=== PATIENT | female | born 1970 | race Caucasian/White ===

== ENCOUNTER 2019-09-15 13:27 | Observation (INO) ==
[2019-09-15] MEDS ORDERED: ZOSYN 3.375 GM in NS 50 ML IV ONE (14:52)
[2019-09-15 14:56] LABS: BASO# 0.04 X1000 (0.0-0.2); BASO% 0.4 % (0.0-0.8); HEMATOCRIT 38.3 % (37.0-47.0); HEMOGLOBIN 12.4 g/dL (12.0-16.0); IMM GRAN# 0.02 X1000 (0.0-0.04); IMM GRAN% 0.2 % (0.0-0.5); LYMPH% 27.9 % (20.5-51.1); MCH 30.4 PG (27-31); MCHC 32.4 g/dL (33-37); MCV 93.9 FL (81-99); MONO# 0.95 X1000 (0.11-0.59); MONO% 9.5 % (1.7-9.3); MPV 12.1 FL (7.4-10.4); NEUT# 6.02 X1000 (1.4-6.5); PLT 279 X1000 (130-400); RBC 4.08 XMIL (4.2-5.4); RDW 11.9 % (11.5-14.5); WBC 10.03 X1000 (4.8-10.8)
--- NOTE | 2019-09-15 15:13 | PROVIDER DOCUMENTATION ---
HPI-Animal/Snake Bite Injury - General Chief Complaint: Animal Bite Stated Complaint: ANIMAL BITE Time Seen by Provider: 09/15/19 14:18 Patient arrived via EMS?: No Source: patient Allergies/Adverse Reactions: Patient Allergies Allergy/AdvReac Type Severity Reaction Status Date / Time No Known Allergies Allergy Verified 09/15/19 13:34 - History of Present Illness-Bite Injuries Nature of Presenting Problem: [id number] presents to the ER with c/o a cat bite to the web of the right hand and thumb that happened 2 nights ago. She reports she started Augmentin the next morning. She reports that yesterday evening she began noticing redness spreading up her arm. When she woke this morning, the redness had streaked up her arm and she had a swollen lymph node in her right armpit. She went to her PCP who immediately sent her here. She denies any fever at the present time. Onset/Duration: 2 days ago Locality of Occurance: Home Quality: painful - Animal Bite Animal:: reports: cat, family pet Context of Attack: reports: "unprovoked" attack Severity of Bite Injury: bitten Review of Systems - Adult - REVIEW OF SYSTEMS - ADULT Constitutional: reports: see HPI. denies: chills, fever Eyes: reports: no symptoms reported Ears, Nose, Mouth & Throat: reports: no symptoms reported Cardiovascular: reports: no symptoms reported Respiratory: reports: no symptoms reported Gastrointestinal: reports: no symptoms reported Genitourinary: reports: no symptoms reported Musculoskeletal: reports: no symptoms reported Integumentary: reports: see HPI, other (punture wounds to webbing of right hand and thumb) Neurological: reports: no symptoms reported Psychiatric: reports: no symptoms reported Endocrine: reports: no symptoms reported Hematologic/Lymphatic: reports: no symptoms reported Allergic/Immunologic: reports: no symptoms reported All Other Systems: Reviewed and Negative Past History - Adult - PAST MEDICAL HISTORY-ADULT Review of Records: reports: Old Records Reviewed, Nursing Assessment Review, Medications Reviewed, Social history reviewed & non-contributory. Major Childhood Illnesses: reports: denies history Cardiovascular: reports: denies history Respiratory: reports: denies history Gastrointestinal: reports: denies history Obstetrical/Gynecological: reports: denies history Genitourinary: reports: denies history Musculoskeletal: reports: denies history Neurological: reports: denies history Endocrine/Immune: reports: denies history Other Conditions: reports: denies history - IMMUNIZATION STATUS Childhood Immunizations: See Nurse Assessment Flu Vaccine: See Nurse Assessment - FAMILY HISTORY Family History: reviewed, not pertinent - SOCIAL HISTORY Smoking: denies Substance Use: denies Living Situation: family Physical Exam-General - PHYSICAL EXAM-ADULT Initial Vital Signs Reviewed: Yes - CONSTITUTIONAL General Appearance: alert, no apparent distress - EYES Eyes: PERRL/EOMI, pink conjunctivae - HEAD, EARS, NOSE, MOUTH & THROAT HENMT: normocephalic/atraumatic, moist mucous membranes, TMs normal - NECK Neck: non-tender, full range of motion, supple - RESPIRATORY Respiratory: lungs clear, normal breath sounds - CARDIOVASCULAR Cardiovascular: regular rate, rhythm - GASTROINTESTINAL (ABDOMEN) Abdominal Exam: non tender, soft - LYMPHATIC Lymphatic: axilla node tender (right) - MUSCULOSKELETAL Back Exam: normal inspection Extremity: non-tender, normal gait Peripheral Pulses: radial (R): 2+, radial (L): 2+ - SKIN Integumentary: erythema (right arm and hand with streaking noted), tenderness (right hand), warm (right hand) - NEUROLOGIC Neurologic: grossly normal Progress - PLAN OF CARE/RESULTS Progress/Plan/Lab Results: Vital Signs - 8 hr 09/15/19 13:30 Temperature 97.8 F Pulse Rate 76 Respiratory Rate 15 Blood Pressure 131/88 O2 Sat by Pulse Oximetry 100 Laboratory Results - last 24 hr 09/15/19 09/15/19 14:42 14:42 WBC 10.03 RBC 4.08 L Hgb 12.4 Hct 38.3 MCV 93.9 MCH 30.4 MCHC 32.4 L RDW Std Deviation 11.9 Plt Count 279 MPV 12.1 H Immature Gran % (Auto) 0.2 Neut % (Auto) 60.0 Lymph % (Auto) 27.9 [place] % (Auto) 9.5 H Eos % (Auto) 2.0 Baso % (Auto) 0.4 Immature Gran # (Auto) 0.02 Neut # (Auto) 6.02 Lymph # (Auto) 2.80 [place] # (Auto) 0.95 H Eos # (Auto) 0.20 Baso # (Auto) 0.04 Sodium 137 Potassium 3.6 Chloride 105 Carbon Dioxide 21 L Anion Gap 11 BUN 13 Creatinine 0.8 Estimated GFR/1.73 m2 > 60 BUN/Creatinine Ratio 16 Glucose 146 H Calculated Osmolality 277 Calcium 9.1 Total Bilirubin 0.30 AST 19 ALT 15 Alkaline Phosphatase 102 Total Protein 7.9 Albumin 4.4 Globulin 4.0 Albumin/Globulin Ratio 1.0 Orders Category Date Time Status HAND COMPLETE RIGHT [RAD] Stat Exams 09/15/19 14:51 Taken BLOOD CULTURE [BLDCUL] Stat Lab 09/15/19 15:04 Ordered CBC WITH DIFF [HEME] Stat Lab 09/15/19 14:42 Completed COMPREHENSIVE METABOLIC PANEL [CHEM] Stat Lab 09/15/19 14:42 Completed LACTATE, PLASMA [CHEM] Stat Lab 09/15/19 15:04 Ordered Piperacillin/Tazobactam [Zosyn] 3.375 gm Med 09/15/19 14:52 Discontinued 0.9% Sodium Chloride Inj [Ns] 50 ml IV NOW Vancomycin 1 gm IV Now Med 09/15/19 15:26 Ordered Vancomycin 1 gm/Ns 1 gm in 250 ml IV NOW Transfer/Admit Order [TRANSFER] Routine Transfer 09/15/19 15:24 Ordered patient verbalizes an understanding of POC and agrees with treatment rendered here today. Result Diagrams: 09/15/19 14:42 09/15/19 14:42 - CONSULTS/PCP/HOSPITALIST Notification #1 *Consult/PCP/Hospitalist*: Dr Sanchez Time Discussed: 15:26 Reason/Comments: infected Cat Bite Consult Disposition: Admit Departure - Departure Date of Disposition Decision: 09/15/19 Time of Disposition Decision: 15:27 DIAGNOSIS: Cellulitis of hand, right Cat bite of hand Qualifiers: Encounter type: initial encounter Laterality: right Qualified Code(s): S61.451A - Open bite of right hand, initial encounter; W55.01XA - Bitten by cat, initial encounter Disposition: ADMITTED INPATIENT 09 Certified Medical Emergency: Emergent Condition: Critical Referrals and Follow-Ups: Shannon Sifuentes MD [Primary Care Provider] - - Critical Care Note This patient required my direct & personal management of CC.: No Attestation - Physician/ HENRI Attestation Patient care was provided by Advanced Practice Provider:: Yes Advanced Practice Provider:: Freddie Gaona Advanced Practice Provider documentation review:: The Mid-level provider documentation, treatment plan and medical decision making was reviewed by the physician who agrees with all treatment and medical decision making by the MLP. The physician spent face to face time with patient:: No Advanced Practice Provider documentation review:: Supervising physician onsite and consulted in the evaluation and care of this patient. The physician did not have a face to face encounter with the patient.
[2019-09-15 15:25] LABS: AGAP 11; ALBUMIN 4.4 g/dL (3.5-5.0); ALKALINE PHOSPHATASE 102 U/L (32-104); BUN 13 mg/dL (8-22); CALCIUM 9.1 mg/dL (8.8-10.2); CHLORIDE 105 mmol/L (98-107); COSMO 277; CREATININE 0.8 mg/dL (0.5-0.9); ESTIMATED GFR > 60; GLUCOSE 146 mg/dL (70-104); GOT 19 U/L (10-30); GPT 15 U/L (10-36); POTASSIUM 3.6 mmol/L (3.5-5.1); SODIUM 137 mmol/L (136-145); TCO2 21 mmol/L (25-35); TOTAL PROTEIN 7.9 g/dL (6.3-8.3)
[2019-09-15] MEDS ORDERED: VANCOMYCIN 1 GM/NS 1 GM/250 ML IVPB IV ONE (15:26)
--- NOTE | 2019-09-15 15:34 | Diag Imaging Result Doc PS360 ---
EXAM: HAND COMPLETE RIGHT HISTORY: infected cat bite TECHNIQUE: Three views. COMPARISON: None. FINDINGS: Bone density is within normal limits. No fracture or dislocation. No destructive lesion. No soft tissue gas. IMPRESSION: Negative right hand series. Electronically signed by Sarah Bowers 09/15/2019 3:32 PM
--- NOTE | 2019-09-15 16:20 | HISTORY AND PHYSICAL ---
PRIMARY CARE PHYSICIAN: Dr. Shannon Sifuentes CHIEF COMPLAINT: Cat bite to her right hand and thumb that began Wednesday night. 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 HISTORY OF PRESENTING ILLNESS: This is a 49-year-old female who presents to [facility] ER after she states 2 nights ago she was bit by a kitten on her right hand and thumb webbed area. 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 She went to see her primary care physician today who sent her to the emergency room for further evaluation and treatment. She is noted to have erythema, edema, some mild warmth to touch that begins in the right thumb and web between the right thumb and index finger up her right arm into her right axilla. White blood cell count was normal at 10.03. We did an x-ray of her right hand that was a negative right hand series. So, she will be admitted for further evaluation and treatment for failed outpatient treatment. PAST MEDICAL HISTORY: Hypertension, hyperlipidemia, and GERD. PAST SURGICAL HISTORY: Cholecystectomy, hysterectomy, tonsillectomy and a cervical fusion x3. FAMILY HISTORY: Reviewed and noncontributory. SOCIAL HISTORY: She currently lives with family. Denies any tobacco, alcohol or illicit drug use. ALLERGIES: She has no known drug allergies. HOME MEDICATIONS: We will need to obtain a current list of her home medications, reconcile, review and restart as appropriate. We will place an order for nursing to update and confirm home medications. LABORATORY DATA: Showed a white blood cell count of 10.03, hemoglobin 12.4, hematocrit 38.3, and platelets 279,000. Sodium 137, potassium 3.6, chloride 105, CO2 21, BUN 13, creatinine 0.8, glucose 146. X-ray of right hand showed a negative right hand series. REVIEW OF SYSTEMS: She denied any fever, chills, blurred vision, dizziness, chest pain, coughing, shortness of breath. She denied any abdominal pain, constipation, diarrhea, burning or hurting with urination. She does have pain to the right hand up into her right axilla with movement. PHYSICAL EXAMINATION: VITAL SIGNS: Temperature 97.8 degrees, pulse 76, respirations 15, blood pressure 131/88. Saturating 100% on room air. GENERAL: This is a 49-year-old female who is sitting up in the bed and answers questions appropriately. HEENT: Normocephalic, atraumatic. Normal ENT inspection. Oropharynx and nares are clear. EYES: Pupils are equal, round, reactive to light and accommodation. Extraocular movements are intact. NECK: Normal inspection. Normal range of motion. LUNGS: Clear to auscultation bilaterally with equal lung expansion and chest wall movement. HEART: Regular rate and rhythm. No murmurs, rubs, or gallops. ABDOMEN: Soft, nontender, nondistended. Bowel sounds are present x4 quadrants. MUSCULOSKELETAL: On her right hand in between her thumb and index finger, she is noted to have some erythema, edema, warmth to touch that streaks upward all the way into her right axilla. NEUROLOGICAL: The cranial nerves 2-12 appear grossly intact. ASSESSMENT: 1. Right hand cellulitis with failed outpatient treatment secondary to a cat bite. 2. Hypertension. 3. Gastroesophageal reflux disease. PLAN: She will be admitted to the medical unit, placed on telemetry, healthy heart diet. We will place her on Zosyn 3.375 g IV q.6h, vancomycin per pharmacy protocol. Normal saline at 100 mL/hour, Tylenol 650 mg p.o. q 6h p.r.n., Zofran 4 mg IV q 4h p.r.n. Recheck CBC, BMP in the a.m. Further orders after seen by attending. Dictated by ELIZABETH Zambrano for Jensen Sanchez MD cc: ELIZABETH Zambrano MD Marlin D. 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 MTDD
[2019-09-15] MEDS ORDERED: VANCOMYCIN IV PER PHARMACY MISC SCH (17:13)
[2019-09-15] MEDS ORDERED: TYLENOL PO PRN (17:13)
[2019-09-15] MEDS ORDERED: NS 1,000 ML IV ONE (17:13)
[2019-09-15] MEDS ORDERED: ZOFRAN IV PRN (17:13)
[2019-09-15] MEDS ORDERED: VANCOMYCIN IV ONE (19:00)
[2019-09-15] MEDS ORDERED: NS IV ONE (19:00)
[2019-09-15] MEDS: ZOSYN 3.375 GM in NS 50 ML IV SCH (20:39)
[2019-09-16] MEDS: ZOSYN 3.375 GM in NS 50 ML IV SCH ×4 (02:39→20:19)
[2019-09-16 06:23] LABS: BASO# 0.03 X1000 (0.0-0.2); BASO% 0.3 % (0.0-0.8); EOS# 0.24 X1000 (0.0-0.7); EOS% 2.7 % (0.0-10.0); HEMATOCRIT 36.7 % (37.0-47.0); HEMOGLOBIN 11.5 g/dL (12.0-16.0); IMM GRAN# 0.01 X1000 (0.0-0.04); IMM GRAN% 0.1 % (0.0-0.5); LYMPH# 2.39 X1000 (1.2-3.4); LYMPH% 27.4 % (20.5-51.1); MCH 29.7 PG (27-31); MCHC 31.3 g/dL (33-37); MCV 94.8 FL (81-99); MONO# 0.93 X1000 (0.11-0.59); MONO% 10.7 % (1.7-9.3); MPV 12.4 FL (7.4-10.4); NEUT# 5.13 X1000 (1.4-6.5); NEUT% 58.8 % (42.2-75.2); PLT 271 X1000 (130-400); RBC 3.87 XMIL (4.2-5.4); RDW 12.2 % (11.5-14.5); WBC 8.73 X1000 (4.8-10.8)
[2019-09-16 06:40] LABS: AGAP 11; BUN 16 mg/dL (8-22); CALCIUM 8.4 mg/dL (8.8-10.2); CHLORIDE 107 mmol/L (98-107); COSMO 281; CREATININE 0.8 mg/dL (0.5-0.9); ESTIMATED GFR > 60; GLUCOSE 98 mg/dL (70-104); POTASSIUM 3.8 mmol/L (3.5-5.1); SODIUM 140 mmol/L (136-145); TCO2 23 mmol/L (25-35)
[2019-09-16] MEDS: VANCOMYCIN 1,200 MG in NS 250 ML IV SCH (13:33)
[2019-09-16] MEDS ORDERED: MAXALT MLT PO PRN (13:35)
--- NOTE | 2019-09-16 13:48 | PROGRESS NOTE ---
DATE: 09/16/2019 SUBJECTIVE: She feels much better today. OBJECTIVE: Blood pressure is 102/57, heart rate 74, respiratory rate 20, temperature 97.9 degrees, pretty sure she is afebrile. PROBLEM LIST: Cellulitis of the right hand associated with a cat bite failing outpatient therapy. She is improved on vancomycin and Zosyn. I am going to continue those for another 24 hours. She really does not have a white count or anything from that perspective so is difficult to track improvement but on exam the erythema has greatly diminished. In any case patient is stabilizing. I anticipate discharge tomorrow, probably discharge her on doxy and something like Rocephin or Keflex something like that and we will see how she does. cc: Jensen Sanchez MD
[2019-09-16] MEDS: FLEXERIL PO SCH (16:55)
[2019-09-16] MEDS ORDERED: LIPITOR PO SCH (21:00)
[2019-09-16] MEDS ORDERED: TOPROL XL PO SCH (21:00)
[2019-09-16] MEDS ORDERED: TOPAMAX PO SCH (21:00)
[2019-09-17] MEDS: ZOSYN 3.375 GM in NS 50 ML IV SCH ×2 (02:10→09:45)
[2019-09-17] MEDS: VANCOMYCIN 1,200 MG in NS 250 ML IV SCH ×2 (05:55→06:39)
[2019-09-17] MEDS: PROTONIX PO SCH ×2 (05:55→06:38)
[2019-09-17 08:11] VITALS: BP 104/61
[2019-09-17] MEDS ORDERED: BUSPAR PO SCH (09:00)
[2019-09-17] MEDS ORDERED: CYMBALTA PO SCH (09:00)
[2019-09-17] MEDS: FLEXERIL PO SCH ×2 (09:44→13:23)
--- NOTE | 2019-09-17 20:21 | DISCHARGE SUMMARY ---
ADMISSION DATE: 09/15/2019 DISCHARGE DATE: 09/17/2019 DISCHARGE DIAGNOSES: Cellulitis of her right hand associated with a cat bite wound on her anterior and posterior aspect of her right at her first MCP joint. The patient had been placed on Augmentin. She had at least a couple days worth but did not improve. She started having lymphangitic spreading along her forearm and up into her right arm and her right axilla. No white count. No fever, but she was admitted for cellulitis failing outpatient. She was placed on vancomycin and Zosyn and improved within 24 hours. We kept her one more day. White count seems stable. We discharged her on Keflex and doxycycline. DISCHARGE MEDICATIONS: Atorvastatin 20 at bedtime, buspirone 15 daily, Flexeril 10 t.i.d., topiramate 15 at bedtime, metoprolol 100 at bedtime, Cymbalta 60 daily, Estrace 1 daily, Protonix 40 daily, rizatriptan p.r.n., doxycycline 100 p.o. b.i.d. for 10 days and Keflex 500 t.i.d. for 10 days. She was encouraged to use probiotic. Follow up with PCP in 1 to 2 weeks. cc: Jensen Sanchez MD
== END 2019-09-17 16:17 | disposition home or self-care (01) ==
LOC: P.ED 13:27 → INTOOBSV 13:28 → P.MEDSURG 16:29
PROVIDERS: ATTEND Internal Medicine